=== PATIENT | male | born 1940 | race Caucasian/White ===

== ENCOUNTER → 2016-10-01 | Outpatient (CLI) | payer OTHER ==
[~2016-10-01] MED LIST: ASPI325T32 PO; CEPH500C PO; HYDR-3498 PO; MTF1000T PO; TRAM50TA2 PO
--- NOTE | 2016-10-01 14:19 | RADRPT ---
PROCEDURE: XR Pelvis. CLINICAL INDICATION: Hip pain TECHNIQUE: AP pelvis/AP and lateral left hip views performed. COMPARISON: 07/30/2016 FINDINGS: There is a left total hip replacement. There is no evidence of loosening of the prosthesis. There is moderate to severe right hip osteoarthrosis. This is associated with joint space narrowing, subchondral sclerosis, subchondral cyst formation and osteophytosis. 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 No fractures or osseous lesions are identified. The soft tissues are unremarkable. IMPRESSION: Left total hip replacement. Moderate to severe right hip osteoarthrosis. RPTAT: [facility] .Skyler Franco MD, MD Date Time Electronically viewed and signed by .Skyler Franco MD, on 10/01/2016 14:18 .B/
== END | disposition home or self-care (01) ==
LOC: HKI 13:34
PROVIDERS: ATTEND Orthopaedic Surgery
DX: Z47.1 Aftercare following joint replacement surgery (principal); M16.11 Unilateral primary osteoarthritis, right hip; Z96.642 Presence of left artificial hip joint
CPT/HCPCS: 73502; G0463